=== PATIENT | female | born 1965 | race Caucasian/White ===

== ENCOUNTER 2023-06-07 17:56 | Emergency (ER) | payer OTHER ==
[2023-06-07] MEDS ORDERED: LIDOCAINE 1% MPF 5 ML VIAL ONE (18:38)
[2023-06-07] MEDS ORDERED: BUPIVACAINE 0.5% PF 10 ML VIAL ONE (18:38)
--- NOTE | 2023-06-07 19:00 | RAD REPORT ---
EXAM DESCRIPTION: RAD - Hand Right 3 View - 06/07/2023 6:41 pm CLINICAL HISTORY: PAIN COMPARISON: No comparisons TECHNIQUE: Right hand, 3 views. FINDINGS: No fracture is identified. There is no dislocation or periosteal reaction noted. No foreign body. Soft tissue swelling and irreg ularity along the distal phalanx of the third digit. IMPRESSION: Soft tissue abnormalities at the distal phalanx third digit, with no acute osseous abnor mality.
--- NOTE | 2023-06-07 19:35 | ER ---
Nurse's Notes [facility] Name: Viry Johns Age: 57 yrs Sex: Female : 1965 Arrival Date: 06/07/2023 Time: 17:56 Bed 8 Private MD: Diagnosis: Laceration without foreign body of right middle finger with damage to nail, initial encounter Presentation: 06/06 18:33 Chief complaint: Patient states: shut her right middle finger in the garage door of her iw shed. Coronavirus screen: At this time, the client does not indicate any symptoms associated with coronavirus-19. Ebola Screen: Patient negative for fever greater than or equal to 101.5 degrees Fahrenheit, and additional compatible Ebola Virus Disease symptoms Patient denies exposure to infectious person. Patient denies travel to an Ebola-affected area in the 21 days before illness onset. No symptoms or risks identified at this time. Initial Sepsis Screen: Does the patient meet any 2 criteria? No. Patient's initial sepsis screen is negative. Does the patient have a suspected source of infection?. Risk Assessment: Do you want to hurt yourself or someone else? Patient reports no desire to harm self or others. Onset of symptoms was June 07, 2023. 18:33 Method Of Arrival: Ambulatory iw 18:33 Acuity: ADALID 3 iw Triage Assessment: 18:45 General: Appears in no apparent distress. Behavior is calm, cooperative. Injury ph Description: Crush injury sustained to dorsal aspect of distal phalanx of right middle finger. Historical: - Allergies: 18:33 PENICILLINS; iw 18:33 Dilaudid; iw - PMHx: 18:33 Hypertensive disorder; Hypercholesterolemia; iw - PSHx: 18:33 back; iw - Immunization history:: Adult Immunizations up to date, Last tetanus immunization: up to date. - Infectious Disease History:: Denies. - Social history:: Smoking status: Patient denies any tobacco usage or history of. Screenin:44 [facility] ED Fall Risk Assessment (Adult) History of falling in the last 3 months, ph including since admission No falls in past 3 months (0 pts) Confusion or Disorientation Yes (5 pts) Intoxicated or Sedated No (0 pts) Impaired Gait No (0 pts) Mobility Assist Device Used No (0 pt) Altered Elimination No (0 pt) Score/Fall Risk Level 0 - 2 = Low Risk Oriented to surroundings, Maintained a safe environment, Hourly rounding (assess needs \T\ fall precautionary measures) done. Abuse screen: Denies threats or abuse. Denies injuries from another. Nutritional screening: No deficits noted. Tuberculosis screening: No symptoms or risk factors identified. Assessment: 18:43 General: Appears in no apparent distress. comfortable, well groomed, Behavior is calm, ph cooperative, appropriate for age. Pain: Complains of pain in dorsal aspect of distal phalanx of right middle finger. Neuro: Level of Consciousness is awake, alert, obeys commands, Oriented to person, place, time, situation. Cardiovascular: Capillary refill < 3 seconds in bilateral fingers Patient's skin is warm and dry. Respiratory: Airway is patent Respiratory effort is even, unlabored, Respiratory pattern is regular, symmetrical. Musculoskeletal: Circulation, motion, and sensation intact. Range of motion: intact in all extremities. 19:08 Reassessment: Patient and/or family updated on plan of care and expected duration. Pain tm6 level reassessed. Patient is alert, oriented x 3, equal unlabored respirations, skin warm/dry/pink. 19:40 Reassessment: Patient appears in no apparent distress at this time. Patient and/or bm8 family updated on plan of care and expected duration. Pain level reassessed. Patient is alert, oriented x 3, equal unlabored respirations, skin warm/dry/pink. Patient states feeling better. Patient states symptoms have improved. Vital Signs: 18:33 BP 140 / 89; Pulse 82; Resp 16; Temp 98.4; Pulse Ox 100% ; Weight 63.5 kg; Height 5 ft. iw 0 in. ; Pain 9/10; 19:07 BP 142 / 84; Pulse 69; Pulse Ox 100% on R/A; Pain 7/10; tm6 19:40 BP 148 / 83; Pulse 78; Resp 17; Temp 98.4; Pulse Ox 100% on R/A; Pain 0/10; bm8 18:33 Body Mass Index 27.34 (63.50 kg, 152.4 cm) iw 18:33 Pain Scale: Adult iw 19:07 Pain Scale: Adult tm6 19:40 Pain Scale: Adult bm8 [place] Coma Score: 19:40 Eye Response: spontaneous(4). Motor Response: obeys commands(6). Verbal Response: bm8 oriented(5). Total: 15. ED Course: 17:58 Patient arrived in ED. mr 18:03 Yvette Cadena F[facility]-C is [facility]. kb 18:03 Christian Vaz MD is Attending Physician. kb 18:33 Triage completed. iw 18:34 Arm band placed on. iw 18:35 Antonio Lundberg, RN is Primary Nurse. bp 18:43 Hand Right 3 View XRAY In Process Unspecified. EDMS 18:44 Patient has correct armband on for positive identification. Bed in low position. Call ph light in reach. Side rails up X 1. Pulse ox on. NIBP on. Door closed. Noise minimized. Warm blanket given. 19:07 Report received from rosanne washington. bm8 19:08 Provided Education on: plan of care. tm6 19:40 Assist provider with laceration repair on dorsal aspect of distal phalanx of right bm8 middle finger, palmar aspect of distal phalanx of right middle finger and right middle fingernail that was 2.5 cm. or less using sutures. Set up tray. Performed by Yvette ZHANG Dressed with 4X4s, Kerlix, Neosporin, Patient tolerated well. Patient did not have IV access during this emergency room visit. Dressings: non-adherent dressing x 1 dorsal aspect of distal phalanx of right middle finger, palmar aspect of distal phalanx of right middle finger and right middle fingernail. Administered Medications: 19:25 Drug: Bupivacaine Infiltration (0.5 %) 1 vials 10 ml Infiltration once {Note: by 8 provider.} Volume: 10 ml; Route: Infiltration; 19:39 Follow up: Response: No adverse reaction bm8 19:25 Drug: Lidocaine Infiltration (1 %) 1 vials 5 ml Infiltration once; to bedside {Note: by 8 [email or web address].} Volume: 5 ml; Route: Infiltration; 19:40 Follow up: Response: No adverse reaction 8 Medication: 19:08 VIS not applicable for this client. tm6 Outcome: 19:34 Discharge ordered by . kb 19:40 Discharged to home ambulatory, bm8 19:40 Condition: stable 19:40 Discharge instructions given to patient, Instructed on discharge instructions, follow up and referral plans. medication usage, safety practices, Demonstrated understanding of instructions, follow-up care, medications, 19:50 Patient left the ED. bm8 Signatures: Dispatcher [employer] EDMS Yvette Cadena, FELIPE-C CLIENT APPLICATION SUPPORT SPECIALIST-Heather Lindquist, Chance Fletcher mr Christie Goodwin, RN RN Mica Bagley, RN RN Antonio Howard, RN Casandra Brothers, RN ROSANNE tm6 Dominic Roque RN ROSANNE bm8
--- NOTE | 2023-06-07 19:35 | EDPHYS ---
Physician Documentation [facility] Name: Viry Johns Age: 57 yrs Sex: Female : 1965 Arrival Date: 06/07/2023 Time: 17:56 Bed 8 Private MD: ED Physician Christian Vaz HPI: 06/06 18:24 This 57 yrs old Female presents to ER via Unassigned with complaints of Finger Injury. kb 18:15 Patient is a 57-year-old female who was closing the door of the shed (similar to [facility] door) and her right middle finger got smashed in the door. Denies any other injuries.. Historical: - Allergies: 18:33 PENICILLINS; iw 18:33 Dilaudid; iw - PMHx: 18:33 Hypertensive disorder; Hypercholesterolemia; iw - PSHx: 18:33 back; iw - Immunization history:: Adult Immunizations up to date, Last tetanus immunization: up to date. - Infectious Disease History:: Denies. - Social history:: Smoking status: Patient denies any tobacco usage or history of. ROS: 18:23 Constitutional: As per HPI kb Exam: 18:23 Constitutional: This is a well developed, well nourished patient who is awake, alert, kb and in no acute distress. Head/Face: Normocephalic, atraumatic. ENT: Moist Mucous membranes Cardiovascular: Regular rate Respiratory: Respirations even and unlabored. No increased work of breathing. Talking in full sentences Neuro: Awake and alert, GCS 15, oriented to person, place, time, and situation. Moves all extremities. Normal gait. 18:23 Musculoskeletal/extremity: Extremities: grossly normal except: noted in the dorsal aspect of distal phalanx of right middle finger: laceration, pain, tenderness, ROM: intact in all extremities, Circulation is intact in all extremities. Sensation intact. Vital Signs: 18:33 BP 140 / 89; Pulse 82; Resp 16; Temp 98.4; Pulse Ox 100% ; Weight 63.5 kg; Height 5 ft. iw 0 in. ; Pain 9/10; 19:07 BP 142 / 84; Pulse 69; Pulse Ox 100% on R/A; Pain 7/10; tm6 19:40 BP 148 / 83; Pulse 78; Resp 17; Temp 98.4; Pulse Ox 100% on R/A; Pain 0/10; bm8 18:33 Body Mass Index 27.34 (63.50 kg, 152.4 cm) iw 18:33 Pain Scale: Adult iw 19:07 Pain Scale: Adult tm6 19:40 Pain Scale: Adult bm8 [place] Coma Score: 19:40 Eye Response: spontaneous(4). Motor Response: obeys commands(6). Verbal Response: bm8 oriented(5). Total: 15. Procedures: 19:11 Nerve block: (digital) of palmar aspect of proximal phalanx of right middle finger kb Medication: Lidocaine 1% without epinephrine Marcaine 0.5%, Amount: 5 mls were injected, Effect: the patient has resolution of the pain, Set up for procedure. Performed by Yvette ZHANG Patient tolerated well. Laceration: 19:33 Wound Repair of 1.5cm ( 0.6in ) subcutaneous laceration to dorsal aspect of distal kb phalanx of right middle finger. Irregularly shaped.. Distal neuro/vascular/tendon intact. Anesthesia: Digital block administered with 1% lidocaine. Wound prep: Extensive cleansing with betadine by me, Wound irrigation with saline by me. Skin closed with 4 4-0 Prolene using simple sutures and sterile technique. Patient tolerated well. MDM: 18:03 Patient medically screened. kb 19:33 Differential diagnosis: open fracture, laceration, avulsion, amputation. Data reviewed: vital signs, nurses notes. Counseling: I had a detailed discussion with the patient and/or guardian regarding the historical points, exam findings, and any diagnostic results supporting the discharge/admit diagnosis, radiology results, the need for outpatient follow up, a family practitioner, to return to the emergency department if symptoms worsen or persist or if there are any questions or concerns that arise at home. 06/06 18:14 Order name: Hand Right 3 View XRAY; Complete Time: 19:04 kb 06/06 18:15 Order name: Dressing - Wound; Complete Time: 19:39 kb 06/06 18:15 Order name: Gloves, Sterile: size 6; Complete Time: 18:43 kb 06/06 18:15 Order name: Prolene, Sutures: 4.0; Complete Time: 18:43 kb 06/06 18:15 Order name: Setup Suture Tray; Complete Time: 18:43 kb Administered Medications: 19:25 Drug: Bupivacaine Infiltration (0.5 %) 1 vials 10 ml Infiltration once {Note: by bm8 provider.} Volume: 10 ml; Route: Infiltration; 19:39 Follow up: Response: No adverse reaction [facility] 19:25 Drug: Lidocaine Infiltration (1 %) 1 vials 5 ml Infiltration once; to bedside {Note: by 8 [id number].} Volume: 5 ml; Route: Infiltration; 19:40 Follow up: Response: No adverse reaction [facility] Disposition: 06/07 08:50 Co-signature as Attending Physician, Christian Vaz MD I reviewed the patient's care rt provided by the Advanced Practice Provider and agree with the diagnosis and treatment plan. Disposition Summary: 06/07/23 19:34 Discharge Ordered Condition: Stable kb Diagnosis - Laceration without foreign body of right middle finger with damage to nail, initial kb encounter Followup: kb - With: Private Physician - When: 2 - 3 days - Reason: Recheck today's complaints, Continuance of care, Re-evaluation by your physician Followup: kb - With: Emergency Department - When: As needed - Reason: Worsening of condition Discharge Instructions: - Discharge Summary Sheet kb - Laceration Care, Adult, [id number] kb Forms: - Medication Reconciliation Form kb - Thank You Letter kb - Antibiotic Education kb - Prescription Opioid Use kb - Patient Portal Instructions kb - Leadership Thank You Letter kb Signatures: Dispatcher [employer] Yvette Ronquillo, PHERESIS SPECIALIST-C PHERESIS SPECIALIST-Christie Matson RN RN iw [place], Ryan, MD MD rt Dominic Roque RN RN 8 Corrections: (The following items were deleted from the chart) 06/06 18:25 18:15 Right middle finger. kb kb
== END 2023-06-07 19:50 | disposition home or self-care (01) ==
LOC: ER 17:56
PROC: 0HQFXZZ Repair Right Hand Skin, External Approach (ICD-10-PCS; principal; 2023-06-07)
DX: S61.312A Laceration without foreign body of right middle finger with damage to nail, initial encounter (principal); Z88.0 Allergy status to penicillin; Z88.5 Allergy status to narcotic agent
CPT/HCPCS: 73130; 64450; 99284; 12001; J2001

== ENCOUNTER 2023-06-20 12:33 | Emergency (ER) | payer OTHER ==
--- NOTE | 2023-06-20 13:23 | ER ---
Nurse's Notes [facility] Name: Viry Johns Age: 57 yrs Sex: Female : 1965 Arrival Date: 06/20/2023 Time: 12:33 Bed 12 Private MD: Diagnosis: Encounter for removal of sutures Presentation: 06/19 13:08 Chief complaint: Patient states: had sutures placed here 06/07/23 to right middle aa5 finger, need for suture removal. Coronavirus screen: At this time, the client does not indicate any symptoms associated with coronavirus-19. Ebola Screen: Patient denies travel to an Ebola-affected area in the 21 days before illness onset. Initial Sepsis Screen: Does the patient meet any 2 criteria? No. Patient's initial sepsis screen is negative. Does the patient have a suspected source of infection? No. Patient's initial sepsis screen is negative. Risk Assessment: Do you want to hurt yourself or someone else? Patient reports no desire to harm self or others. Onset of symptoms was June 20, 2023. 13:08 Method Of Arrival: Ambulatory aa5 13:08 Acuity: ADALID 4 aa5 Historical: - Allergies: 13:07 Dilaudid; aa5 13:07 PENICILLINS; aa5 13:07 tegaderm; aa5 - PMHx: 13:07 Hypercholesterolemia; Hypertensive disorder; aa5 - PSHx: 13:07 back; right knee replacement (back); aa5 - Immunization history:: Adult Immunizations unknown. - Infectious Disease History:: Denies. - Social history:: Smoking status: Patient denies any tobacco usage or history of. Screenin:28 [facility] ED Fall Risk Assessment (Adult) History of falling in the last 3 months, hb including since admission No falls in past 3 months (0 pts) Confusion or Disorientation No (0 pts) Intoxicated or Sedated No (0 pts) Impaired Gait No (0 pts) Mobility Assist Device Used No (0 pt) Altered Elimination No (0 pt) Score/Fall Risk Level 0 - 2 = Low Risk Oriented to surroundings, Maintained a safe environment, Educated pt \T\ family on fall prevention, incl call for assistance when getting out of bed. Abuse screen: Denies threats or abuse. Denies injuries from another. Nutritional screening: No deficits noted. Tuberculosis screening: No symptoms or risk factors identified. Assessment: 13:28 General: Appears in no apparent distress. Behavior is calm, cooperative. Pain: Pain hb currently is 5 out of 10 on a pain scale. Neuro: Level of Consciousness is awake, alert, obeys commands, Oriented to person, place, time, situation. Cardiovascular: Patient's skin is warm and dry. Respiratory: Respiratory effort is even, unlabored, Respiratory pattern is regular, symmetrical. Derm: BRYAN NOTED TO RIGHT KNEE. Vital Signs: 13:08 BP 119 / 70; Pulse 70; Resp 17 S; Temp 97.5(TE); Pulse Ox 100% on R/A; Weight 64.41 kg aa5 (R); Height 5 ft. 0 in. (R); 13:08 Body Mass Index 27.73 (64.41 kg, 152.4 cm) aa5 ED Course: 12:35 Patient arrived in ED. rg4 13:07 Arm band placed on. aa5 13:08 Triage completed. aa5 13:11 Braydon Potter PA is PHCP. cp 13:11 Jane Nazario MD is Attending Physician. cp 13:28 Nolvia Lorenzo, ROSANNE is Primary Nurse. hb 13:28 Patient has correct armband on for positive identification. Provided Education on: hb WOUND CARE. 13:28 No provider procedures requiring assistance completed. Patient did not have IV access hb during this emergency room visit. Administered Medications: No medications were administered Medication: 13:28 VIS not applicable for this client. hb Outcome: 13:22 Discharge ordered by MD. cp 13:28 Discharged to home ambulatory, hb 13:28 Condition: stable 13:28 Discharge instructions given to patient, Instructed on discharge instructions, follow up and referral plans. medication usage, Demonstrated understanding of instructions, follow-up care, medications, 13:30 Patient left the ED. hb Signatures: Delfina Lacey RN RN aa5 Braydon Potter PA PA cp Nolvia Lorenzo, ROSANNE RN Isabella Alcocer rg4
--- NOTE | 2023-06-20 13:23 | EDPHYS ---
Physician Documentation [facility] Name: Viry Johns Age: 57 yrs Sex: Female : 1965 Arrival Date: 06/20/2023 Time: 12:33 Bed 12 Private MD: ED Physician Jane Nazario HPI: 06/19 13:20 This 57 yrs old Female presents to ER via Ambulatory with complaints of Suture Recheck. cp 13:20 The patient has sutures on the distal tip of right middle finger. cp 13:20 Previous treatment: The patient was initially treated on June 07, 2023, the care was cp rendered at [facility], Treatment type: The patient's original treatment included sutures. Sutures/zaira progress: The patient's wound displays wound dehiscence. Historical: - Allergies: 13:07 Dilaudid; aa5 13:07 PENICILLINS; aa5 13:07 tegaderm; aa5 - PMHx: 13:07 Hypercholesterolemia; Hypertensive disorder; aa5 - PSHx: 13:07 back; right knee replacement (back); aa5 - Immunization history:: Adult Immunizations unknown. - Infectious Disease History:: Denies. - Social history:: Smoking status: Patient denies any tobacco usage or history of. ROS: 13:20 Skin: Positive for swelling, history laceration distal tip of right middle finger with cp sutures in place, 13:20 Constitutional: Negative for fever, cp 13:20 All other systems are negative, Exam: 13:21 Skin: Wound recheck: Suture laceration closure: no drainage, no erythema, mild cp swelling, moderate dehiscence, [address] distal tip right middle finger, 13:21 Head/Face: Normocephalic, atraumatic. cp 13:21 Constitutional: The patient appears in no acute distress, alert, awake, 13:21 Chest/axilla: Inspection: normal, 13:21 Cardiovascular: Rate: normal, 13:21 Respiratory: the patient does not display signs of respiratory distress, Respirations: normal, Vital Signs: 13:08 BP 119 / 70; Pulse 70; Resp 17 S; Temp 97.5(TE); Pulse Ox 100% on R/A; Weight 64.41 kg aa5 (R); Height 5 ft. 0 in. (R); 13:08 Body Mass Index 27.73 (64.41 kg, 152.4 cm) aa5 Procedures: 13:21 Suture/Staple removal: Removed 3 sutures, from tip of right middle finger, site appears cp gaping, dressed with gauze bandage, Neosporin, Patient tolerated well. MDM: 13:11 Patient medically screened. cp 13:22 Data reviewed: vital signs, nurses notes, and as a result, I will discharge patient. cp 13:22 Counseling: I had a detailed discussion with the patient and/or guardian regarding the cp historical points, exam findings, and any diagnostic results supporting the discharge/admit diagnosis, to return to the emergency department if symptoms worsen or persist or if there are any questions or concerns that arise at home. Response to treatment: the patient's symptoms have markedly improved after treatment, and as a result, I will discharge patient. 06/19 13:20 Order name: Wound dressing; Complete Time: 13:25 cp Administered Medications: No medications were administered Disposition Summary: 06/20/23 13:22 Discharge Ordered Notes: Location: Home cp Problem: new cp Symptoms: have improved cp Condition: Stable cp Diagnosis - Encounter for removal of sutures cp Followup: cp - With: Private Physician - When: 1 - 2 days - Reason: Worsening of condition Discharge Instructions: - Discharge Summary Sheet cp - How to Change Your Wound Dressing cp - Suture Removal, Care After cp Forms: - Medication Reconciliation Form cp - Antibiotic Education cp - Prescription Opioid Use cp - Patient Portal Instructions cp - Leadership Thank You Letter cp Signatures: Delfina Lacey RN RN aa5 Braydon Potter PA PA cp
[2023-06-21 14:43] VITALS: BP 119/70; TEMP 97.5; O2SAT 100
== END 2023-06-20 13:30 | disposition home or self-care (01) ==
LOC: ER 12:33
DX: Z48.02 Encounter for removal of sutures (principal)
CPT/HCPCS: 99282